=== PATIENT | male | born 1955 | race Two or more races ===

== ENCOUNTER → 2024-03-19 | Outpatient (CLI) | payer MEDICARE, MEDICAID, SELFPAY ==
--- NOTE | 2024-03-19 10:07 | XR_ITS ---
Examination: Left knee 4 views TECHNIQUE: AP oblique lateral axial left knee 4 views Exam date and time: March 19, 2024 1029 hours INDICATIONS: Sports injury to the knee 24 years ago with persistent knee pain. FINDINGS: Moderate tricompartment osteoarthritis, most severe medial joint space Moderate osteopenia No fracture or patellar dislocation IMPRESSION: Moderate tricompartment osteoarthritis
--- NOTE | 2024-03-19 10:07 | XR_ITS ---
Examination: PA lateral chest 2 views TECHNIQUE: Upright PA lateral chest 2 views Exam date and time: March 19, 2024 at 10:45 AM Comparison June 21, 2016 INDICATIONS: Shortness of breath beginning 6 years ago. FINDINGS: Mild hyperexpansion Normal heart size No pneumonia or pulmonary edema IMPRESSION: Mild hyperexpansion
== END | disposition home or self-care (01) ==
LOC: SDIM 09:58
PROVIDERS: PCP Internal Medicine; Referring Provider Internal Medicine; Visit Provider Internal Medicine
DX: M17.12 Unilateral primary osteoarthritis, left knee (principal); R91.8 Other nonspecific abnormal finding of lung field; S89.92XA Unspecified injury of left lower leg, initial encounter; X58.XXXA Exposure to other specified factors, initial encounter
CPT/HCPCS: 71046; 73564

== ENCOUNTER 2024-05-27 09:00 | Day surgery (SDC) | payer MEDICARE, MEDICAID, SELFPAY ==
[2024-05-26 12:48] VITALS: BMI 33.3
[2024-05-27] VITALS (10 sets, daily range): BP systolic 114–138; BP diastolic 63–83; PULSE 68–81; RESP 9–21; TEMP 36.7; O2SAT 92–97; BMI 32.1
[2024-05-27] MEDS: SODIUM CHLORIDE 0.9% 500 ML 500 ML 20 ML IV (11:01)
[2024-05-27] MEDS: ONDANSETRON INJ 2 MG/ML INJ 2 ML 4 MG IV (11:05)
[2024-05-27] MEDS: DiphenhydrAMINE INJ 50 MG/ML VIAL 25 MG IV (11:07)
[2024-05-27] MEDS: fentaNYL CIT INJ 50 mCg/ML AMP 2ML (ASD USE ONLY) IV (11:16)
[2024-05-27] MEDS: MIDAZOLAM INJ 1 MG/ML VIAL 2 ML (ASD USE ONLY) 2 MG IV (11:20)
--- NOTE | 2024-05-27 14:10 | SUR.PHASEII ---
1136: Pt received in [facility]. Report from [facility]. Pt groggy. Easily aroused then drifts back to sleep. Resp even, unlabored. VS stable. No c/o pain, discomfort. 1200: Pt more awake, alert. VS stable. Denies pain. Sitting up tolerating po fluids with no difficulty swallowing and no n/v. 1220: Pt assisted to restroom. Ambulation steady. Pt awaiting transportation. 1245: Transportation available. Pt and girlfriend stated understanding of discharge instructions. Pt discharged from [facility] in stable condition.
== END 2024-05-27 12:45 | disposition home or self-care (01) ==
PROVIDERS: PCP Family Medicine; Referring Provider Specialist; Visit Provider Specialist
PROC: 0DBE8ZX Excision of Large Intestine, Via Natural or Artificial Opening Endoscopic, Diagnostic (ICD-10-PCS; CPT 45380; principal; 2024-05-27 11:15)
PROC: (CPT 43239; 2024-05-27 11:15)
DX: Z12.11 Encounter for screening for malignant neoplasm of colon (principal); E78.5 Hyperlipidemia, unspecified; Z79.02 Long term (current) use of antithrombotics/antiplatelets; E11.9 Type 2 diabetes mellitus without complications; N40.0 Benign prostatic hyperplasia without lower urinary tract symptoms; Z79.899 Other long term (current) drug therapy; K29.50 Unspecified chronic gastritis without bleeding; K63.5 Polyp of colon
CPT/HCPCS: 45385; A4649; J1200; J2250; J2405; J3010; J7040

== ENCOUNTER → 2025-01-26 | Outpatient (CLI) | payer MEDICARE, MEDICAID, SELFPAY ==
--- NOTE | 2025-01-26 16:00 | XR_ITS ---
Exam: MRI knee without contrast, left Date and time of exam: January 26, 2025, 0751 hours INDICATIONS: Twisting injury to the knee 2000 with knee pain Technique: Multiple axial, coronal, and sagittal sections on the knee have been obtained. T2-Weighted sagittal, fat-suppressed images, TR 3,500, TE 62, T2 weighted coronal fat-saturated images, TR 3,500, TE 62 Proton density sagittal sections, TR 1800, TE 31. T-1 weighted coronal images, TR 524, TE 13.0 Findings: Medial meniscus anterior horn intact. Medial meniscus, body intact. Posterior horn medial meniscus vertical tear near the intermargin. Lateral meniscus anterior horn is intact Lateral meniscus, body is intact Posterior horn lateral meniscus is intact Anterior cruciate ligament appears intact. Posterior cruciate ligament appears intact. Knee effusion is small. Quadriceps and patellar tendons appear intact. There is no evidence of tendinosis. Inflammatory change or fracture of Hoffa's fat pad is not seen. Medial patellar facet demonstrates moderate thinning. Lateral patellar facet cartilage demonstrates moderate thinning. Trochlear cartilage demonstrates moderate thinning. Marrow signal adequate. Medial collateral ligament appears intact. No meniscocapsular separation is seen. Illiotibial band and fibular collateral ligament are intact. Biceps femoris tendons appear intact. Medial femoral condylar articular cartilage demonstrates moderate thinning. Lateral femoral condylar articular cartilage demonstrates moderate thinning. Tibial plateau cartilage demonstrates moderate thinning. Impression: Vertical tear posterior horn medial meniscus Cruciate ligaments intact
== END | disposition home or self-care (01) ==
LOC: SMRI 15:46
PROVIDERS: PCP Internal Medicine; Referring Provider Internal Medicine; Visit Provider Internal Medicine
DX: S83.242A Other tear of medial meniscus, current injury, left knee, initial encounter (principal); X50.1XXA Overexertion from prolonged static or awkward postures, initial encounter
CPT/HCPCS: 73721